=== PATIENT | female | born 1955 ===

== ENCOUNTER 2017-12-28 06:20 | Day surgery (SDC) | payer OTHER ==
[~2017-12-28 06:20] MED LIST: MULTIVITAMINS1 EAC9 PO
[2017-12-28] MEDS ORDERED: PERCOCET 5-3251 EACH PO (11:38)
== END 2017-12-28 13:05 | disposition home or self-care (01) ==
LOC: CIR.AMB 06:20
DX: C73 Malignant neoplasm of thyroid gland (principal)